=== PATIENT | male | born 1990 | race Caucasian/White ===

== ENCOUNTER 2023-08-24 17:44 | Emergency (ER) | payer OTHER ==
[~2023-08-24] VITALS: Ht 185.4 cm; Wt 88.6 kg
[2023-08-24 19:51] VITALS: BP 156/86; PULSE 68; TEMP 97.7
== END 2023-08-24 19:51 | disposition home or self-care (01) ==
LOC: COL.ER 17:44
DX: S93.402A Sprain of unspecified ligament of left ankle, initial encounter (principal); X50.9XXA Other and unspecified overexertion or strenuous movements or postures, initial encounter; Y93.66 Activity, soccer; Y92.322 Soccer field as the place of occurrence of the external cause